=== PATIENT | male | born 1985 | race Caucasian/White ===

== ENCOUNTER → 2018-07-15 | Outpatient (CLI) | payer BC ==
--- NOTE | 2018-07-15 09:47 | US ---
EXAMINATION TYPE: US abdomen complete DATE OF EXAM: 07/15/2018 COMPARISON: CLINICAL HISTORY: R10.9abdominal pain, R74.8. Abnormal labs EXAM MEASUREMENTS: Liver Length: 17.6 cm Gallbladder Wall: 0.2 cm CHD: 0.4 cm Spleen: 12.8 cm Right Kidney: 12.4 x 5.7 x 4.9 cm Left Kidney: 11.9 x 5.2 x 5.6 cm Limited exam due to patient body habitus Pancreas: Tail obscured by overlying bowel gas Liver: Increased attenuation, decreased visualization of vessels suggestive of fatty infiltrate Gallbladder: wnl Evidence for sonographic Matute's sign: neg CBD: Obscured by overlying bowel gas CHD: 0.4 cm Spleen: wnl Right Kidney: wnl Left Kidney: Upper pole cystic appearing lesion = 2.1 x 1.6 x 1.8 cm Upper IVC: Obscured by overlying bowel gas Abd Aorta: wnl The liver is homogenous. The intrahepatic portion of the IVC and proximal abdominal aorta are within normal limits. There is no evidence of cholelithiasis. Common bile duct is unremarkable. The visu alized portions of the pancreas are homogenous. The spleen is unremarkable. Kidneys are symmetric a nd free of hydronephrosis. No solid renal lesions are seen. IMPRESSION: : Simple cyst upper pole left kidney.
== END | disposition home or self-care (01) ==
LOC: RADUSWWP 08:57
PROVIDERS: ATTEND Internal Medicine
DX: N28.1 Cyst of kidney, acquired (principal)
CPT/HCPCS: 76700

== ENCOUNTER → 2022-06-27 | Outpatient (CLI) | payer BC ==
[2022-06-27 17:05] LABS: HCT 46.3 % (39.6-50.0); HGB 15.1 g/dL (13.0-17.0); MCHC 32.6 g/dL (32.0-37.0); Mean Platelet Volume 11.1 fL (9.5-12.2); NRBC Per 100 WBC 0 /100 WBCS (0.0-0.0); Platelet Count 222 X 10*3/uL (140-440); WBC 7.52 X 10*3/uL (4.50-10.00)
[2022-06-27 17:18] LABS: African American GFR (CKD) 128.5 (60.0-200.0); Albumin 4.2 g/dL (3.8-4.9); Albumin/Globulin Ratio 1.55 (1.60-3.17); Anion Gap 11.4 mmol/L (10.00-18.00); BUN/Creat Ratio 12.56 Ratio (12.00-20.00); Blood Urea Nitrogen 10.6 mg/dL (9.0-27.0); Calcium 9.3 mg/dL (8.7-10.3); Carbon Dioxide 22.1 mmol/L (20.0-27.5); Globulin 2.7 g/dL (1.6-3.3); Non-African American GFR(CKD) 110.9 (60.0-200.0); Potassium 4.3 mmol/L (3.5-5.5); Total Bilirubin 0.4 mg/dL (0.30-1.20); Total Protein 6.8 g/dL (6.2-8.2)
== END | disposition home or self-care (01) ==
LOC: LABWHC1 10:32
PROVIDERS: ATTEND Family Medicine
DX: K21.9 Gastro-esophageal reflux disease without esophagitis (principal); R10.84 Generalized abdominal pain
CPT/HCPCS: 36415; 80053; 82977; 83036; 85027

== ENCOUNTER → 2023-03-04 | Outpatient (CLI) | payer BC ==
--- NOTE | 2023-03-04 15:15 | US ---
EXAMINATION TYPE: US abdomen complete DATE OF EXAM: 03/04/2023 COMPARISON: 07/15/2018 CLINICAL INDICATION: Male, 37 years old with history of R74.01 ELEVATION OF LEVELS OF LIVER TRANSAMIN ASE L; elevated liver enzymes. TECHNIQUE: Multiple sonographic images of the abdomen are obtained. FINDINGS: EXAM MEASUREMENTS: Liver Length: 18.5 cm Gallbladder Wall: .2 cm CBD: .5 cm Spleen: 13.8 cm Right Kidney: 13.8 x 4.7 x 4.5 cm Left Kidney: 13 x 5.3 x 6.6 cm MUSICAL PERFORMER NOTES: Exam limitations due to body habitus. Pancreas: Obscured by bowel gas Liver: Increased attenuation , mildly enlarged Gallbladder: No stones seen Evidence for sonographic Matute's sign: no CBD: wnl Spleen: wnl Right Kidney: No hydronephrosis. Left Kidney: No hydronephrosis. Hypoechoic area seen upper pole 2.5 x 3.7 x 2.9 cm. Previously aishwarya uring 2.1 cm. Upper IVC: wnl Abd Aorta: wnl IMPRESSION: 1. Mild hepatomegaly at 18.5 cm with severe hepatic steatosis. Correlate with LFTs, lipid profile, an d patient risk factors. Appropriate further management recommended. 2. No gallstones or biliary ductal dilatation. 3. A hypoechoic lesion measuring 3.7 cm in the upper pole of the left kidney. Suspect a cyst with int ernal echoes representing debris or artifact. As this has increased from 2.1 cm on 07/15/2018, precaut ionary six-month follow-up ultrasound recommended.
== END | disposition home or self-care (01) ==
LOC: RADUSWWP 08:48
PROVIDERS: ATTEND Family Medicine
DX: K76.0 Fatty (change of) liver, not elsewhere classified (principal); R16.0 Hepatomegaly, not elsewhere classified; R74.01 Elevation of levels of liver transaminase levels
CPT/HCPCS: 76700

== ENCOUNTER → 2023-05-04 | Outpatient (CLI) | payer BC ==
--- NOTE | 2023-05-04 17:08 | US ---
EXAMINATION TYPE: US venous doppler duplex LE LT DATE OF EXAM: 05/04/2023 4:38 PM COMPARISON: NONE CLINICAL INDICATION: Male, 37 years old with history of M79.605 PAIN IN LEFT LEG; cramps in left leg. SIDE PERFORMED: Left TECHNIQUE: The lower extremity deep venous system is examined utilizing real time linear array sonog alexei with graded compression, doppler sonography and color-flow sonography. VESSELS IMAGED: Common Femoral Vein Deep Femoral Vein Greater Saphenous Vein * Femoral Vein Popliteal Vein Small Saphenous Vein * Proximal Calf Veins (* superficial vessels) Left Leg: Negative for DVT IMPRESSION: Grayscale, color doppler, spectral doppler imaging performed of the deep veins of the lo wer extremities. There is normal flow, compressibility, vascular waveforms.
== END | disposition home or self-care (01) ==
LOC: RADUSWWP 16:21
PROVIDERS: ATTEND Family Medicine
DX: M79.605 Pain in left leg (principal)